=== PATIENT | female | born 1960 | race African-American/Black ===

== ENCOUNTER → 2016-09-04 | Outpatient (CLI) | payer OTHER ==
[~2016-09-04] MED LIST: AMBIEN CR6.25 MG PO; ATENOLOL/CHLOR1 EAC1 PO; BACLOFEN10 MG PO; K-DUR20 MEQ PO; LEVOTHYROXINE112 MCG PO; LEVOTHYROXINE88 MCG PO; LISINOPRIL20 MG PO; LO-DOSE ASPIRIN81 M1 PO; LO-DOSE ASPIRIN81 M2 PO; LORTAB 5-325 M1 EACH PO; METOPROLOL SUCC50 MG PO; METOPROLOL TART50 MG PO; MOTRIN600 MG PO; SYMBICORT60 INHALAT IH; TRAMADOL HCL50 MG PO; VENTOLIN HFA18 GM IH; VICODIN ES 7.51 EAC1 PO; ZOLOFT25 MG PO
== END | disposition home or self-care (01) ==
LOC: RES 07:50
DX: Z02.71 Encounter for disability determination (principal)
CPT/HCPCS: 94010; 94729; 94760

== ENCOUNTER 2017-03-28 06:53 | Emergency (ER) | payer BC ==
[~2017-03-28] VITALS: Ht 175.3 cm; Wt 130.1 kg
[2017-03-28 06:56] VITALS: BP 164/85
[2017-03-28] MEDS ORDERED: NAPROSYN500 MG PO (07:24)
== END 2017-03-28 07:43 | disposition home or self-care (01) ==
LOC: EME 06:53
DX: G56.01 Carpal tunnel syndrome, right upper limb (principal); F17.210 Nicotine dependence, cigarettes, uncomplicated; I10 Essential (primary) hypertension; Z79.82 Long term (current) use of aspirin; Z86.718 Personal history of other venous thrombosis and embolism
CPT/HCPCS: 99281; 99283

== ENCOUNTER 2017-04-16 07:03 | Emergency (ER) | payer BC ==
[~2017-04-16] VITALS: Ht 175.3 cm; Wt 126.0 kg
[~2017-04-16 07:03] MED LIST changes: +NAPROSYN500 MG PO
[2017-04-16 07:49] LABS: APPEARANCE SL.HAZY ((CLEAR)); BILIRUBIN NEGATIVE; BLOOD MODERATE; COLOR YELLOW ((YELLOW)); GLUCOSE (STRIP) NEGATIVE; KETONES NEGATIVE; LEUKOCYTES TRACE; NITRITE NEGATIVE; PROTEIN (STRIP) 30; SPECIFIC GRAVITY 1.015 (1.000-1.030); UROBILINOGEN 0.2 MG/DL (0.2-1.0)
[2017-04-16 07:54] LABS: BACTERIA 1+ /HPF; EPITHELIAL CELLS 2+ /HPF; HYALINE CASTS 30-40 /LPF; MUCUS TRACE /LPF
[2017-04-16 07:59] LABS: HEMATOCRIT 40.4 % (36.0-46.0); HEMOGLOBIN 13.8 G/DL (11.9-15.5); MCH 27.5 PG (29.0-34.0); MCHC 34.2 G/DL (30.0-36.0); MCV 80.5 FL (83-99); PLATELET COUNT 405 K/uL (156-360); RBC DIS.WIDTH-SD 40.8 % (39-53); RED BLOOD COUNT 5.02 M/uL (3.80-5.20); WHITE BLOOD COUNT 3.6 K/uL (4.1-10.2)
[2017-04-16 08:21] VITALS: BP 145/80
== END 2017-04-16 08:22 | disposition home or self-care (01) ==
LOC: EME 07:03
PROVIDERS: Physician Assistant
DX: B34.9 Viral infection, unspecified (principal); F17.200 Nicotine dependence, unspecified, uncomplicated; Z79.82 Long term (current) use of aspirin; Z90.49 Acquired absence of other specified parts of digestive tract
CPT/HCPCS: 81003; 85027; 99281; 99284

== ENCOUNTER → 2017-07-12 | Outpatient (CLI) | payer BC | END | disposition home or self-care (01) | LOC: CDC 16:22 | DX: Z01.810 Encounter for preprocedural cardiovascular examination (principal); M25.531 Pain in right wrist; G56.01 Carpal tunnel syndrome, right upper limb; G56.21 Lesion of ulnar nerve, right upper limb; R94.31 Abnormal electrocardiogram [ECG] [EKG] | CPT/HCPCS: 93000 ==